=== PATIENT | male | born 1955 | race Caucasian/White ===

== ENCOUNTER 2023-08-01 05:19 | Day surgery (SDC) | payer MEDICARE, OTHER ==
[~2023-08-01] VITALS: Ht 185.4 cm; Wt 154.0 kg
[2023-08-01] MEDS ORDERED: FentaNYL CITRATE PF 100 MCG/2 ML VIAL IVP ONE (05:20)
[2023-08-01] MEDS ORDERED: ONDANSETRON HCL 4 MG/2 ML VIAL IVP ONE (05:20)
[2023-08-01] MEDS ORDERED: MIDAZOLAM HCL 2 MG/2 ML VIAL IVP ONE (05:20)
[2023-08-01] MEDS ORDERED: ALBUTEROL SULFATE HFA 90 MCG/PUFF 8 GM INHALER IH ONE (05:20)
[2023-08-01] MEDS ORDERED: PROPOFOL 1% 20 ML VIAL IVP ONE (05:20)
[2023-08-01] MEDS ORDERED: LIDOCAINE/PF 2% 5 ML VIAL IM ONE (05:20)
[2023-08-01] MEDS ORDERED: CeFAZolin SODIUM 1 GM VIAL IVP ONE (05:20)
[2023-08-01] MEDS ORDERED: HEPARIN SODIUM,PORCINE 10,000 UNITS/ML VIAL SQ ONE (05:20)
[2023-08-01] MEDS ORDERED: CHLORHEXIDINE GLUCONATE 2% TOWELETTE [2'S/6'S] TP ONE (06:00)
[2023-08-01] MEDS ORDERED: SODIUM CHLORIDE 0.9% 1,000 ML IV ONE (06:00)
[2023-08-01 06:04] LABS: HEMATOCRIT 31.5 % (41-53); HEMOGLOBIN 10.3 g/dL (13.5-17.5); MEAN CORPUSCULAR HEMOGLOBIN 30.4 pg (26.0-34.0); MEAN CORPUSCULAR HGB CONC 32.8 G/dL (31.0-37.0); MEAN CORPUSCULAR VOLUME 93 fL (80-100); PLATELET COUNT (AUTO) 217 K/uL (150-450); RED BLOOD CELL COUNT(AUTO) 3.39 MIL/uL (4.50-5.90); RED CELL DISTRIBUTION WIDTH 14.7 % (11.5-14.5); WHITE BLOOD COUNT (AUTO) 7.2 K/uL (4.5-11.0)
[2023-08-01] MEDS ORDERED: SODIUM CHLORIDE 0.9% 1,000 ML ONE (06:11)
[2023-08-01 06:20] LABS: PROTHROMBIN TIME 10.3 SEC (9.4-11.6)
[2023-08-01 06:22] LABS: CALCIUM, TOTAL 8.6 mg/dL (8.8-10.5); CREATININE 9.31 mg/dL (0.60-1.30); POTASSIUM 4.6 mmol/L (3.5-5.1)
[2023-08-01 06:35] LABS: COVID AG,FIA SOURCE NASAL SWAB
[2023-08-01] MEDS ORDERED: LINA5TAB PO (06:40)
[2023-08-01] MEDS ORDERED: AMLO10TA55 PO (06:40)
[2023-08-01] MEDS ORDERED: OMEG100015 PO (06:40)
[2023-08-01] MEDS ORDERED: B,C/1TAB PO (06:40)
[2023-08-01] MEDS ORDERED: SEVE800T7 PO (06:40)
[2023-08-01] MEDS ORDERED: SIMV-46 PO (06:40)
[2023-08-01 06:44] LABS: BAND NEUTROPHILS % (MANUAL) 2 % (0-5); LYMPHOCYTES % (MANUAL) 18 % (22-44); MONOCYTES % (MANUAL) 1 % (2-9); SEGMENTED NEUTROPHILS % 79 % (40-70); TOTAL CELLS COUNTED 100
[2023-08-01] MEDS ORDERED: LIDOCAINE/PF 1% 30 ML VIAL ONE (06:50)
[2023-08-01] MEDS ORDERED: CeFAZolin SODIUM 1 GM VIAL ONE (06:51)
[2023-08-01] MEDS ORDERED: SODIUM CHLORIDE 0.9% 100 ML ONE (06:52)
[2023-08-01] MEDS ORDERED: HEPARIN SODIUM,PORCINE 5,000 UNITS/ML VIAL ONE (06:54)
[2023-08-01] MEDS ORDERED: VANCOMYCIN HCL 1 GM/VIAL ONE (06:59)
[2023-08-01 07:01] LABS: SARS-COV2 (COVID) ANTIGEN,FIA Negative (Negative)
[2023-08-01] MEDS ORDERED: ALBUTEROL SULFATE 2.5 MG/0.5 ML NEB SOLUTION NEB ONE (07:02)
[2023-08-01] MEDS ORDERED: LIDOCAINE/PF 2% 5 ML VIAL ONE (07:17)
[2023-08-01] MEDS ORDERED: OXYGEN THERAPY IH SCH (20:00)
== END 2023-08-01 11:10 | disposition home or self-care (01) ==
LOC: SURGERY 05:19 → EDSTATUS 07:30 → SURGERY 11:10
PROVIDERS: ATTEND Surgery
DX: E11.22 Type 2 diabetes mellitus with diabetic chronic kidney disease (principal); I12.0 Hypertensive chronic kidney disease with stage 5 chronic kidney disease or end stage renal disease; N18.6 End stage renal disease; Z20.822 Contact with and (suspected) exposure to COVID-19; Z87.01 Personal history of pneumonia (recurrent); Z98.890 Other specified postprocedural states; Z79.899 Other long term (current) drug therapy; E78.00 Pure hypercholesterolemia, unspecified; G89.18 Other acute postprocedural pain
CPT/HCPCS: 36821; 64415; 80048; 85007; 85027; 85610; 36415; 93005; 71046; 87426; J2704; J0690; J3010; J1644; J3490 ×2; J2250; J2405; J3370; J7060; J7030; J7050; C9803; J3535; J7613; Z7610